=== PATIENT | female | born 1955 | race African-American/Black ===

== ENCOUNTER 2022-04-04 10:42 | Emergency (ER) | payer OTHER ==
[~2022-04-04] VITALS: Ht 165.1 cm; Wt 66.0 kg
[2022-04-04] MEDS ORDERED: HYDROCODONE/ACETAMINOPHEN 5/325MG TABLET PO STA (12:09)
[2022-04-04] MEDS ORDERED: CYCLOBENZAPRINE 10MG TABLET PO SCH (12:15)
[2022-04-04 12:26] VITALS: BP 135/75
[2022-04-04 12:43] LABS: BASOPHILS % 0.5 % (0.0-2.0); EOSINOPHILS % 2.2 % (0.0-5.0); HEMATOCRIT. 41.9 % (36.0-48.0); HEMOGLOBIN. 13.4 g/dL (12.0-16.0); LYMPHOCYTES % 31.1 % (20.0-50.0); MEAN CORPUSCULAR HEMOGLOBIN 27.3 pg (28.0-32.0); MEAN CORPUSCULAR VOLUME 85.4 fL (81.0-99.0); MONOCYTES % 11.5 % (2.0-8.0); NEUTROPHILS % 54.7 % (40.0-76.0); PLATELET 318 x1000/uL (130-400); RED CELL DISTRIBUTION WIDTH 14.4 % (11.6-14.6)
[2022-04-04 12:50] LABS: CHLORIDE 108 mEq/L (98-107)
[2022-04-04 12:57] LABS: CREATINE KINASE 249 IU/L (26-192)
[2022-04-04] MEDS ORDERED: HYDR-4001 MT (15:08)
== END 2022-04-04 15:24 | disposition home or self-care (01) ==
LOC: ER 10:56
DX: M79.605 Pain in left leg (principal)
CPT/HCPCS: 36415; 73502; 80053; 82550; 83605; 85025; 85379; 93971; 99285

== ENCOUNTER 2022-04-04 16:29 | Emergency (ER) | payer OTHER ==
[~2022-04-04 16:29] MED LIST: HYDR-4001 MT
== END 2022-04-04 17:38 | disposition left against medical advice (07) ==
LOC: ER 16:57
DX: Z53.21 Procedure and treatment not carried out due to patient leaving prior to being seen by health care provider (principal)

== ENCOUNTER 2022-04-07 11:32 | Emergency (ER) | payer OTHER ==
[~2022-04-07] VITALS: Ht 162.6 cm; Wt 75.0 kg
[2022-04-07] MEDS ORDERED: HYDROCODONE/ACETAMINOPHEN 5/325MG TABLET PO ONE (12:30)
[2022-04-07] MEDS ORDERED: KETOROLAC 60MG/2ML VIAL IM ONE (12:30)
[2022-04-07 13:05] VITALS: BP 163/77
[2022-04-07] MEDS ORDERED: CYCL5TAB MT (15:26)
[2022-04-07] MEDS ORDERED: IBUP-2028 MT (15:26)
[2022-04-07] MEDS ORDERED: MELO-104 MT (16:13)
== END 2022-04-07 16:23 | disposition home or self-care (01) ==
LOC: ER 11:47
DX: M54.32 Sciatica, left side (principal); I10 Essential (primary) hypertension
CPT/HCPCS: 72148; 73552; 96372; 99284; J1885

== ENCOUNTER 2022-12-07 08:26 | Emergency (ER) | payer OTHER ==
[~2022-12-07] VITALS: Ht 167.6 cm; Wt 72.0 kg
[~2022-12-07 08:26] MED LIST changes: +CYCL5TAB MT; +IBUP-2028 MT; +MELO-104 MT
[2022-12-07 08:31] VITALS: O2SAT 100
[2022-12-07] MEDS ORDERED: PANTOPRAZOLE SODIUM 40 MG/VIAL IV STA (08:54)
[2022-12-07] MEDS ORDERED: ONDANSETRON HCL 4MG/2ML INJ IV STA ×2 (08:54→17:29)
[2022-12-07] MEDS ORDERED: MORPHINE SULFATE 4 MG/ML CPJ (NOT FOR IM USE) IV STA (08:54)
[2022-12-07] MEDS ORDERED: SODIUM CHLORIDE 0.9% 1,000 ML IV ONE ×2 (09:00→12:30)
[2022-12-07 09:15] LABS: BASOPHILS % 0.4 % (0.0-2.0); EOSINOPHILS % 0.3 % (0.0-5.0); HEMATOCRIT. 40.1 % (36.0-48.0); HEMOGLOBIN. 13.7 g/dL (12.0-16.0); LYMPHOCYTES % 15.7 % (20.0-50.0); MEAN CORPUSCULAR HEMOGLOBIN 29.6 pg (28.0-32.0); MEAN CORPUSCULAR HGB CONC 34.1 g/dL (31.0-37.0); MEAN CORPUSCULAR VOLUME 86.6 fL (81.0-99.0); MEAN PLATELET VOLUME 8.1 fl (7.4-10.4); MONOCYTES % 9.9 % (2.0-8.0); NEUTROPHILS % 73.7 % (40.0-76.0); PLATELET 246 x1000/uL (130-400); RED BLOOD CELL COUNT 4.63 mill/uL (4.2-5.4); RED CELL DISTRIBUTION WIDTH 15.6 % (11.6-14.6); WHITE BLOOD COUNT 7.6 x1000/uL (4.5-11.0)
[2022-12-07 09:23] LABS: CHLORIDE 96 mEq/L (98-107); INDEX HEMOLYSI 2 (1-3); INDEX ICTERIC 1 (1-4); INDEX LIPEMIC 1 (1-3); POTASSIUM 3.1 mEq/L (3.5-5.1); SODIUM 132 mEq/L (136-145)
[2022-12-07 09:33] LABS: ALANINE AMINOTRANSFERASE 84 IU/L (13-61); ALBUMIN 3.7 g/dL (3.4-5.0); ASPARTATE AMINOTRANSFERASE 72 IU/L (15-37); BILIRUBIN TOTAL 0.4 mg/dL (0.1-1.0); CALCIUM 10.5 mg/dL (8.5-10.1); CARBON DIOXIDE 24 mEq/L (21-32); CREATININE 1.3 mg/dL (0.6-1.3); GLUCOSE 179 mg/dL (70-105); NT PRO B-TYPE NATRIURETIC PEP 1346 pg/mL (5-125); PROTEIN TOTAL 7.8 g/dL (6.0-8.3); TROPONIN I HIGH SENSITIVITY 17 ng/L (<54); UREA NITROGEN BLOOD 20 mg/dL (7-21)
[2022-12-07 11:47] LABS: CLARITY URINE CLOUDY (CLEAR); COLOR URINE YELLOW (YELLOW); GLUCOSE URINE NEGATIVE (NEGATIVE); KETONES URINE 1+ (NEGATIVE); LEUKOCYTE ESTERASE URINE NEGATIVE (NEGATIVE); NITRITE URINE NEGATIVE (NEGATIVE); OCCULT BLOOD URINE NEGATIVE (NEGATIVE); PH URINE 5.5 (4.5-8.0); PROTEIN URINE 2+ (NEGATIVE); SPECIFIC GRAVITY URINE 1.033 (1.005-1.030)
[2022-12-07 12:03] LABS: MUCUS URINE 1+ /lpf (< = 2+); SQUAMOUS EPITHELIAL CELL URINE 2+ /lpf (RARE/1+)
[2022-12-07 12:04] LABS: RBC URINE 0-2 /hpf (0-2); WBC URINE 0-2 /hpf (0-2)
[2022-12-07 12:05] LABS: BACTERIA URINE 2+
[2022-12-07] MEDS ORDERED: MORPHINE SULFATE 4 MG/ML CPJ (NOT FOR IM USE) IV ONE (13:00)
[2022-12-07] MEDS ORDERED: IOHEXOL-300 100 ML BOTTLE ONE (15:20)
[2022-12-07] MEDS ORDERED: KETOROLAC 30MG/ML VIAL IV STA (17:29)
[2022-12-07 19:00] VITALS: BP 179/97; PULSE 107; RESP 16; TEMP 98.2
== END 2022-12-07 19:28 | disposition short-term general hospital (02) ==
LOC: ER 08:26 → CANBEDREQ 18:24 → ER 19:28
DX: K85.90 Acute pancreatitis without necrosis or infection, unspecified (principal); I10 Essential (primary) hypertension
CPT/HCPCS: 80053; 81003; 83880; 83690; 85025; 84484; 36415; 71045; 74177; 76705; 93005; 96361; 96374; 96375; 96376; 99285; Q9967; J1885; J2405; C9113; J2270; J7030; Z7610 ×6

== ENCOUNTER 2023-10-27 00:25 | Emergency (ER) | payer OTHER ==
[~2023-10-27] VITALS: Ht 167.6 cm; Wt 73.0 kg
[2023-10-27 00:37] VITALS: O2SAT 98
[2023-10-27 02:00] VITALS: BP 144/65; PULSE 96; RESP 16; TEMP 98.2
[2023-10-27] MEDS ORDERED: HYDR-4001 MT (02:00)
[2023-10-27] MEDS: HYDROCODONE/ACETAMINOPHEN 5/325MG TABLET PO ONE (02:29)
== END 2023-10-27 02:35 | disposition home or self-care (01) ==
LOC: ER 00:25
DX: S92.901A Unspecified fracture of right foot, initial encounter for closed fracture (principal); I10 Essential (primary) hypertension; Z79.899 Other long term (current) drug therapy; X58.XXXA Exposure to other specified factors, initial encounter; Y93.89 Activity, other specified; Y92.89 Other specified places as the place of occurrence of the external cause; Y99.8 Other external cause status
CPT/HCPCS: 73630; 99283; Z7610

== ENCOUNTER 2024-03-23 12:11 | Emergency (ER) | payer OTHER ==
[~2024-03-23] VITALS: Ht 167.6 cm; Wt 73.0 kg
[2024-03-23 12:13] VITALS: TEMP 98.2; O2SAT 100
[2024-03-23 15:30] VITALS: O2SAT 99
[2024-03-23] MEDS ORDERED: HYDR-4001 MT (15:39)
[2024-03-23 15:54] VITALS: BP 170/100; PULSE 104; RESP 18
[2024-03-23] MEDS: HYDROCODONE/ACETAMINOPHEN 5/325MG TABLET PO STA (15:54)
== END 2024-03-23 16:54 | disposition home or self-care (01) ==
LOC: ER 12:11
DX: S92.514A Nondisplaced fracture of proximal phalanx of right lesser toe(s), initial encounter for closed fracture (principal); S90.121A Contusion of right lesser toe(s) without damage to nail, initial encounter; I10 Essential (primary) hypertension; Z87.891 Personal history of nicotine dependence; W22.8XXA Striking against or struck by other objects, initial encounter; Y93.89 Activity, other specified; Y92.89 Other specified places as the place of occurrence of the external cause; Y99.8 Other external cause status
CPT/HCPCS: 73630; 99283

== ENCOUNTER 2024-05-13 07:22 | Emergency (ER) | payer OTHER ==
[~2024-05-13] VITALS: Ht 167.6 cm; Wt 73.0 kg
[~2024-05-13 07:22] MED LIST changes: -CYCL5TAB MT; +CYCL5TAB3 MT
[2024-05-13 07:36] VITALS: O2SAT 100
[2024-05-13 07:55] VITALS: TEMP 37.00296; O2SAT 100
[2024-05-13 08:13] VITALS: BP 177/145; PULSE 107; RESP 22
[2024-05-13] MEDS: MORPHINE SULFATE 4 MG/ML INJ (FOR IV/IM USE) IV STA (08:13)
[2024-05-13] MEDS: SODIUM CHLORIDE 0.9% 1,000 ML IV ONE ×2 (08:14→11:13)
[2024-05-13] MEDS: ONDANSETRON HCL 4MG/2ML INJ IV STA (08:14)
[2024-05-13] MEDS: FAMOTIDINE 20MG/2ML VIAL IV STA (08:14)
[2024-05-13 09:07] LABS: HEMATOCRIT. 39.9 % (36.0-48.0); HEMOGLOBIN. 12.4 g/dL (12.0-16.0); MEAN CORPUSCULAR HEMOGLOBIN 27.6 pg (28.0-32.0); MEAN CORPUSCULAR HGB CONC 31.1 g/dL (31.0-37.0); MEAN CORPUSCULAR VOLUME 88.5 fL (81.0-99.0); MEAN PLATELET VOLUME 7.5 fl (7.4-10.4); PLATELET 362 x1000/uL (130-400); RED BLOOD CELL COUNT 4.51 mill/uL (4.2-5.4); RED CELL DISTRIBUTION WIDTH 16.4 % (11.6-14.6); WHITE BLOOD COUNT 13.8 x1000/uL (4.5-11.0)
[2024-05-13 09:10] LABS: DIFFERENTIAL COMMENT 1
[2024-05-13 09:17] LABS: PROTHROMBIN TIME 11.4 sec (9.6-11.0)
[2024-05-13 09:26] LABS: CHLORIDE 104 mEq/L (98-107); SODIUM 141 mEq/L (136-145)
[2024-05-13 09:27] LABS: CARBON DIOXIDE 22 mEq/L (21-32)
[2024-05-13 09:28] LABS: CALCIUM 9.1 mg/dL (8.7-10.4)
[2024-05-13 09:32] LABS: CREATININE 1.6 mg/dL (0.6-1.0)
[2024-05-13 09:33] LABS: GLUCOSE 215 mg/dL (70-105); TROPONIN I HIGH SENSITIVITY 12 ng/L (3.0-34)
[2024-05-13 09:34] LABS: ALANINE AMINOTRANSFERASE 18 IU/L (10-49); ASPARTATE AMINOTRANSFERASE 18 IU/L (<34); UREA NITROGEN BLOOD 22 mg/dL (9-23)
[2024-05-13 09:35] LABS: BILIRUBIN TOTAL < 0.2 mg/dL (0.1-1.0); PROTEIN TOTAL 6.7 g/dL (6.0-8.3)
[2024-05-13 10:02] LABS: BILIRUBIN DIRECT < 0.1 mg/dL (<=3.0)
[2024-05-13] MEDS: ONDANSETRON HCL 4MG/2ML INJ IV ONE (11:13)
[2024-05-13] MEDS ORDERED: KCL 20MEQ/100ML PREMIX 100 ML IV SCH (13:15)
[2024-05-13] MEDS ORDERED: ONDA4TAB50 PO (13:33)
[2024-05-13] MEDS ORDERED: POTASSIUM CHLORIDE 20MEQ/PACKET PO ONE (13:45)
[2024-05-13 17:42] LABS: PLATELET ESTIMATE NORMAL
== END 2024-05-13 13:54 | disposition home or self-care (01) ==
LOC: ER 07:22 → CANBEDREQ 13:03 → ER 13:54
DX: R11.2 Nausea with vomiting, unspecified (principal); I10 Essential (primary) hypertension; Z98.890 Other specified postprocedural states
CPT/HCPCS: 80076; 80048; 83690; 85025; 85610; 84484; 36415; 74176; 93005; 96361; 96374; 96375; 96376; 99285; J3490; J2405; J2270; J7030

== ENCOUNTER 2024-05-29 07:14 | Emergency (ER) | payer OTHER ==
[~2024-05-29] VITALS: Ht 167.6 cm; Wt 69.0 kg
[~2024-05-29 07:14] MED LIST changes: +ONDA4TAB50 PO
[2024-05-29 07:18] VITALS: O2SAT 100
[2024-05-29] MEDS: ONDANSETRON 4MG ODT PO STA (07:28)
[2024-05-29] MEDS: ACETAMINOPHEN 325MG TABLET PO STA (07:28)
[2024-05-29] MEDS: MAGNESIUM/ALUMINUM HYDROXIDE/SIMETHICONE 30ML UDC PO STA (07:28)
[2024-05-29] MEDS: SODIUM CHLORIDE 0.9% 1,000 ML IV ONE (08:37)
[2024-05-29] MEDS: MORPHINE SULFATE 4 MG/ML INJ (FOR IV/IM USE) IV ONE ×2 (08:45→12:24)
[2024-05-29 11:26] LABS: CHLORIDE 112 mEq/L (98-107); POTASSIUM 4.7 mEq/L (3.5-5.1); SODIUM 144 mEq/L (136-145)
[2024-05-29 11:27] LABS: HEMATOCRIT. 36.4 % (36.0-48.0); HEMOGLOBIN. 11.3 g/dL (12.0-16.0); MEAN CORPUSCULAR HEMOGLOBIN 28.3 pg (28.0-32.0); MEAN CORPUSCULAR HGB CONC 31.1 g/dL (31.0-37.0); MEAN PLATELET VOLUME 6.5 fl (7.4-10.4); PLATELET 460 x1000/uL (130-400); RED CELL DISTRIBUTION WIDTH 17.8 % (11.6-14.6); WHITE BLOOD COUNT 12.6 x1000/uL (4.5-11.0)
[2024-05-29 11:30] LABS: CALCIUM 9.1 mg/dL (8.7-10.4); CARBON DIOXIDE 21 mEq/L (21-32)
[2024-05-29 11:31] LABS: DIFFERENTIAL COMMENT 1
[2024-05-29 11:34] LABS: TROPONIN I HIGH SENSITIVITY 4 ng/L (3.0-34)
[2024-05-29 11:35] LABS: CREATININE 1.2 mg/dL (0.6-1.0); GLUCOSE 127 mg/dL (70-105); UREA NITROGEN BLOOD 14 mg/dL (9-23)
[2024-05-29 11:37] LABS: ALANINE AMINOTRANSFERASE 12 IU/L (10-49); ALBUMIN 4.2 g/dL (3.2-4.8); ASPARTATE AMINOTRANSFERASE 18 IU/L (<34)
[2024-05-29 11:38] LABS: BILIRUBIN TOTAL 0.2 mg/dL (0.1-1.0); PROTEIN TOTAL 7.1 g/dL (6.0-8.3)
[2024-05-29 11:43] LABS: BILIRUBIN DIRECT < 0.1 mg/dL (<=3.0)
[2024-05-29 11:44] LABS: ETHANOL BLOOD < 10 mg/dL (<10)
[2024-05-29] MEDS: ONDANSETRON HCL 4MG/2ML INJ IV ONE (12:23)
[2024-05-29 14:28] VITALS: BP 159/64; PULSE 90; RESP 17; TEMP 37.00296; O2SAT 98
[2024-05-29 17:16] LABS: ANISOCYTOSIS 1+; PLATELET ESTIMATE SLIGHTLY INCREASED
== END 2024-05-29 14:55 | disposition short-term general hospital (02) ==
LOC: ER 07:28 → EDBEDREQ 07:51 → CANBEDREQ 12:17 → ER 14:55
DX: K85.90 Acute pancreatitis without necrosis or infection, unspecified (principal); I10 Essential (primary) hypertension; Z87.19 Personal history of other diseases of the digestive system
CPT/HCPCS: 80076; 80048; 80320; 83690; 85025; 84484; 36415; 74176; 93005; 96361; 96374; 96375; 96376; 99285; Q0162; J2405; J2270; J7030; Z7610; G0480

== ENCOUNTER 2024-06-10 07:38 | Inpatient (IN) | payer OTHER ==
[~2024-06-10] VITALS: Ht 157.5 cm; Wt 73.0 kg
[2024-06-10 07:43] VITALS: O2SAT 99
[2024-06-10] MEDS ORDERED: SODIUM CHLORIDE 0.9% 1,000 ML IV ONE (08:00)
[2024-06-10 08:42] LABS: HEMATOCRIT. 39.5 % (36.0-48.0); HEMOGLOBIN. 12.5 g/dL (12.0-16.0); MEAN CORPUSCULAR HEMOGLOBIN 28.5 pg (28.0-32.0); MEAN CORPUSCULAR HGB CONC 31.8 g/dL (31.0-37.0); MEAN CORPUSCULAR VOLUME 89.6 fL (81.0-99.0); MEAN PLATELET VOLUME 6.6 fl (7.4-10.4); PLATELET 639 x1000/uL (130-400); RED BLOOD CELL COUNT 4.41 mill/uL (4.2-5.4); RED CELL DISTRIBUTION WIDTH 17.6 % (11.6-14.6); WHITE BLOOD COUNT 13.8 x1000/uL (4.5-11.0)
[2024-06-10 08:50] LABS: DIFFERENTIAL COMMENT 1
[2024-06-10 08:58] LABS: CHLORIDE 102 mEq/L (98-107); POTASSIUM 3.8 mEq/L (3.5-5.1); SODIUM 136 mEq/L (136-145)
[2024-06-10 08:59] LABS: CALCIUM 9.6 mg/dL (8.7-10.4); CARBON DIOXIDE 17 mEq/L (21-32)
[2024-06-10 09:03] LABS: PROTHROMBIN TIME 11.4 sec (9.6-11.0)
[2024-06-10 09:04] LABS: GLUCOSE 255 mg/dL (70-105); UREA NITROGEN BLOOD 19 mg/dL (9-23)
[2024-06-10 09:05] LABS: AMYLASE 95 IU/L (30-118); TROPONIN I HIGH SENSITIVITY 5 ng/L (3.0-34)
[2024-06-10 09:06] LABS: ALANINE AMINOTRANSFERASE 11 IU/L (10-49); ALBUMIN 4.3 g/dL (3.2-4.8); ASPARTATE AMINOTRANSFERASE 15 IU/L (<34); BILIRUBIN TOTAL 0.2 mg/dL (0.1-1.0); PROTEIN TOTAL 7.2 g/dL (6.0-8.3)
[2024-06-10 09:15] LABS: BILIRUBIN DIRECT < 0.1 mg/dL (<=3.0); CREATININE 1.9 mg/dL (0.6-1.0)
[2024-06-10] MEDS: MORPHINE SULFATE 4 MG/ML INJ (FOR IV/IM USE) IV STA (09:16)
[2024-06-10] MEDS: ONDANSETRON HCL 4MG/2ML INJ IV STA (09:17)
[2024-06-10] MEDS: FAMOTIDINE 20MG/2ML VIAL IV STA (09:17)
[2024-06-10 09:39] LABS: ANISOCYTOSIS 1+; PLATELET ESTIMATE INCREASED
[2024-06-10] MEDS: SODIUM CHLORIDE 0.9% (SEPSIS BOLUS) IV ONE (10:07)
[2024-06-10] MEDS: PIPERACILLIN/TAZO 3.375G/50ML 50 ML IV ONE (10:08)
[2024-06-10] MEDS ORDERED: LORAZEPAM 1MG TABLET PO ONE (12:30)
[2024-06-10 13:06] LABS: CLARITY URINE CLOUDY (CLEAR); COLOR URINE YELLOW (YELLOW); GLUCOSE URINE NEGATIVE (NEGATIVE); KETONES URINE TRACE (NEGATIVE); LEUKOCYTE ESTERASE URINE NEGATIVE (NEGATIVE); NITRITE URINE NEGATIVE (NEGATIVE); OCCULT BLOOD URINE NEGATIVE (NEGATIVE); PH URINE 5.5 (4.5-8.0); PROTEIN URINE 1+ (NEGATIVE); SPECIFIC GRAVITY URINE 1.026 (1.005-1.030); UROBILINOGEN URINE 0.2 E.U./dL (0.2-1.0)
[2024-06-10 13:14] LABS: *AMPHETAMINES SCREEN URINE NEGATIVE (NEGATIVE); *BARBITURATES SCREEN URINE NEGATIVE (NEGATIVE); *BENZODIAZEPINES SCREEN URINE NEGATIVE (NEGATIVE); *COCAINE SCREEN URINE NEGATIVE (NEGATIVE)
[2024-06-10 13:15] LABS: CANNABINOID URINE SCREEN PRESUMPTIVE POSITIVE (NEGATIVE); ECSTASY MDMA SCREEN URINE NEGATIVE (NEGATIVE); METHADONE URINE SCREEN NEGATIVE (NEGATIVE); OPIATES URINE SCREEN PRESUMPTIVE POSITIVE (NEGATIVE); PHENCYCLIDINE URINE SCREEN NEGATIVE (NEGATIVE)
[2024-06-10 13:21] LABS: BACTERIA URINE 2+; RBC URINE 0-2 /hpf (0-2); SQUAMOUS EPITHELIAL CELL URINE 3+ /lpf (RARE/1+); YEAST URINE NONE SEEN
[2024-06-10] MEDS ORDERED: DOCUSATE SODIUM 100MG CAPSULE PO PRN (14:15)
[2024-06-10] MEDS ORDERED: GUAIFENESIN 200MG/10ML SUGAR FREE UDC PO PRN (14:15)
[2024-06-10] MEDS ORDERED: IPRATROPIUM/ALBUTEROL 0.5-3(2.5)MG/3ML NEB HHN PRN (14:15)
[2024-06-10] MEDS ORDERED: CLONIDINE 0.1MG TABLET PO PRN (14:15)
[2024-06-10] MEDS ORDERED: ACETAMINOPHEN 325MG TABLET PO PRN ×2 (14:15)
[2024-06-10 15:53] LABS: TROPONIN I HIGH SENSITIVITY 7 ng/L (3.0-34)
[2024-06-10] MEDS: PIPERACILLIN/TAZO 3.375G/50ML 50 ML IV SCH (16:00)
[2024-06-10] MEDS: AMLODIPINE 5MG TABLET PO SCH (16:30)
[2024-06-10] MEDS: VANCOMYCIN 1.5GM/250ML 250 ML IV NR (19:48)
[2024-06-10] MEDS: SODIUM CHLORIDE 0.9% 1,000 ML IV SCH (19:51)
[2024-06-10 20:00] VITALS: BP 100/45; PULSE 82; RESP 16; TEMP 36.44736; O2SAT 99
[2024-06-10] MEDS: METOPROLOL TARTRATE 25MG TABLET PO SCH (20:15)
[2024-06-10] MEDS: TRAZODONE HCL 50MG TABLET PO SCH (20:15)
[2024-06-10] MEDS: GABAPENTIN 300MG CAPSULE PO SCH (20:16)
[2024-06-10 21:00] VITALS: BP 127/77; PULSE 95; RESP 22; TEMP 36.9474; O2SAT 92
[2024-06-10] MEDS: HYDROCODONE/ACETAMINOPHEN 5/325MG TABLET PO PRN (23:13)
[2024-06-11] VITALS: BP_SYST 122; BP_SYST 144; BP_DIAS 64; BP_DIAS 84; PULSE 84; PULSE 92; RESP 18; TEMP 36.28068; TEMP 36.3918; O2SAT 96; O2SAT 98
[2024-06-11 04:00] VITALS: BP_SYST 123; BP_SYST 139; BP_DIAS 60; BP_DIAS 89; PULSE 80; PULSE 91; RESP 18; TEMP 36.16956; TEMP 36.44736; O2SAT 100; O2SAT 97
[2024-06-11 06:01] LABS: HEMATOCRIT 32.6 % (36.0-48.0); HEMOGLOBIN 10.3 g/dL (12.0-16.0); MEAN CORPUSCULAR HEMOGLOBIN 28.6 pg (28.0-32.0); MEAN CORPUSCULAR HGB CONC 31.6 g/dL (31.0-37.0); MEAN CORPUSCULAR VOLUME 90.5 fL (81.0-99.0); PLATELET 487 x1000/uL (130-400); RED BLOOD CELL COUNT 3.61 mill/uL (4.2-5.4); RED CELL DISTRIBUTION WIDTH 17.5 % (11.6-14.6); WHITE BLOOD COUNT 8.6 x1000/uL (4.5-11.0)
[2024-06-11 06:11] LABS: CHLORIDE 107 mEq/L (98-107); POTASSIUM 3.4 mEq/L (3.5-5.1); SODIUM 141 mEq/L (136-145)
[2024-06-11 06:12] LABS: CALCIUM 9.3 mg/dL (8.7-10.4); CARBON DIOXIDE 22 mEq/L (21-32)
[2024-06-11] MEDS: ONDANSETRON HCL 4MG/2ML INJ IV PRN (06:13)
[2024-06-11 06:17] LABS: CREATININE 1.4 mg/dL (0.6-1.0); GLUCOSE 93 mg/dL (70-105); UREA NITROGEN BLOOD 13 mg/dL (9-23)
[2024-06-11 06:19] LABS: PHOSPHORUS 2.6 mg/dL (2.5-4.9)
[2024-06-11 08:00] VITALS: BP 178/73; PULSE 77; RESP 18; TEMP 36.22512; O2SAT 96
[2024-06-11] MEDS ORDERED: PANTOPRAZOLE SODIUM 40 MG/VIAL IV SCH (09:00)
[2024-06-11] MEDS ORDERED: MAGNESIUM 2 G PREMIX 50 ML IV NR (09:30)
[2024-06-11] MEDS ORDERED: ENOXAPARIN 80MG/0.8ML SYR SUBCUT SCH (10:00)
[2024-06-11] MEDS: POTASSIUM CHLORIDE 20MEQ TABLET SR PO NR (10:33)
[2024-06-11] MEDS: ASPIRIN 81MG TABLET PO ONE (11:00)
[2024-06-11 12:17] VITALS: BP 60/112; PULSE 82
[2024-06-11] MEDS ORDERED: VANCOMYCIN 500MG PREMIX 100 ML IV SCH (18:00)
== END 2024-06-11 16:06 | disposition short-term general hospital (02) | DRG 871 ==
LOC: ER 07:38 → EDBEDREQSVC 09:29 → EDBEDREQTM 09:29 → EDBEDREQ 09:29 → 5WST 09:57
PROVIDERS: ADMIT Internal Medicine; ATTEND Internal Medicine
DX: A41.9 Sepsis, unspecified organism (principal); K85.90 Acute pancreatitis without necrosis or infection, unspecified; E87.20 Acidosis, unspecified; N17.9 Acute kidney failure, unspecified; K86.1 Other chronic pancreatitis; I82.412 Acute embolism and thrombosis of left femoral vein; D75.839 Thrombocytosis, unspecified; I10 Essential (primary) hypertension; I25.10 Atherosclerotic heart disease of native coronary artery without angina pectoris; K29.70 Gastritis, unspecified, without bleeding; K44.9 Diaphragmatic hernia without obstruction or gangrene; N20.0 Calculus of kidney; Z96.652 Presence of left artificial knee joint; F41.9 Anxiety disorder, unspecified; R73.9 Hyperglycemia, unspecified; F19.10 Other psychoactive substance abuse, uncomplicated; Z79.899 Other long term (current) drug therapy; Z95.5 Presence of coronary angioplasty implant and graft
CPT/HCPCS: 36415; 71045; 74176; 80048; 80061; 80076; 80305; 80320; 81003; 82150; 82550; 82553; 83036; 83605; 83735; 83880; 84100; 84484; 85025; 85027; 93005; 93970; 99291; C1893; J1650; J2270; J2405; J2470; J2543; J3370; J3475; J3490; J7030; G0480

== ENCOUNTER 2024-06-11 16:42 | Emergency (ER) | payer OTHER | END 2024-06-11 17:04 | disposition left against medical advice (07) | LOC: ER 16:42 | DX: R07.9 Chest pain, unspecified (principal); Z53.21 Procedure and treatment not carried out due to patient leaving prior to being seen by health care provider ==

== ENCOUNTER 2024-06-13 17:34 | Inpatient (IN) | payer OTHER ==
[~2024-06-13] VITALS: Ht 167.6 cm; Wt 68.1 kg
[2024-06-13 17:40] VITALS: O2SAT 100
[2024-06-13 18:30] LABS: BASOPHILS % 0.5 % (0.0-2.0); DIFFERENTIAL COMMENT 0; EOSINOPHILS % 0.8 % (0.0-5.0); HEMATOCRIT. 36.7 % (36.0-48.0); HEMOGLOBIN. 10.7 g/dL (12.0-16.0); LYMPHOCYTES % 24.1 % (20.0-50.0); MEAN CORPUSCULAR HEMOGLOBIN 27.3 pg (28.0-32.0); MEAN CORPUSCULAR HGB CONC 29.1 g/dL (31.0-37.0); MEAN PLATELET VOLUME 6.6 fl (7.4-10.4); MONOCYTES % 8.7 % (2.0-8.0); NEUTROPHILS % 65.9 % (40.0-76.0); PLATELET 474 x1000/uL (130-400); RED CELL DISTRIBUTION WIDTH 18.4 % (11.6-14.6); WHITE BLOOD COUNT 9.3 x1000/uL (4.5-11.0)
[2024-06-13 18:40] LABS: CHLORIDE 105 mEq/L (98-107); SODIUM 137 mEq/L (136-145)
[2024-06-13 18:41] LABS: CARBON DIOXIDE 18 mEq/L (21-32)
[2024-06-13 18:46] LABS: CREATININE 1.3 mg/dL (0.6-1.0); GLUCOSE 110 mg/dL (70-105); UREA NITROGEN BLOOD 11 mg/dL (9-23)
[2024-06-13 19:03] LABS: TROPONIN I HIGH SENSITIVITY < 4 ng/L (3.0-34)
[2024-06-13 19:19] LABS: ALANINE AMINOTRANSFERASE 9 IU/L (10-49); ALBUMIN 4.1 g/dL (3.2-4.8); ASPARTATE AMINOTRANSFERASE 17 IU/L (<34); BILIRUBIN TOTAL 0.2 mg/dL (0.1-1.0)
[2024-06-13 19:23] LABS: CLARITY URINE CLEAR (CLEAR); COLOR URINE YELLOW (YELLOW); GLUCOSE URINE NEGATIVE (NEGATIVE); KETONES URINE NEGATIVE (NEGATIVE); LEUKOCYTE ESTERASE URINE NEGATIVE (NEGATIVE); NITRITE URINE NEGATIVE (NEGATIVE); OCCULT BLOOD URINE NEGATIVE (NEGATIVE); PH URINE 7.5 (4.5-8.0); PROTEIN URINE NEGATIVE (NEGATIVE); SPECIFIC GRAVITY URINE 1.015 (1.005-1.030); UROBILINOGEN URINE 0.2 E.U./dL (0.2-1.0)
[2024-06-13 19:23] LABS: BILIRUBIN DIRECT < 0.1 mg/dL (<=3.0)
[2024-06-13] MEDS: SODIUM CHLORIDE 0.9% 1,000 ML IV ONE (20:00)
[2024-06-13] MEDS: SODIUM CHLORIDE 0.9% (SEPSIS BOLUS) IV ONE (20:00)
[2024-06-13] MEDS: PIPERACILLIN/TAZO 3.375G/50ML 50 ML IV ONE (20:00)
[2024-06-13] MEDS: MORPHINE SULFATE 4 MG/ML INJ (FOR IV/IM USE) IV STA ×2 (20:03→21:52)
[2024-06-13] MEDS: ONDANSETRON HCL 4MG/2ML INJ IV STA ×2 (20:03→21:53)
[2024-06-13] MEDS: HYDRALAZINE 20MG/ML VIAL IV ONE (22:11)
[2024-06-13 22:21] LABS: LACTIC ACID 3.4 mmol/L (0.4-2.0)
[2024-06-13] MEDS ORDERED: ACETAMINOPHEN 325MG TABLET PO PRN (23:15)
[2024-06-13] MEDS ORDERED: CLONIDINE 0.1MG TABLET PO PRN (23:15)
[2024-06-13] MEDS ORDERED: MAGNESIUM/ALUMINUM HYDROXIDE/SIMETHICONE 30ML UDC PO PRN (23:15)
[2024-06-13] MEDS ORDERED: IPRATROPIUM/ALBUTEROL 0.5-3(2.5)MG/3ML NEB HHN PRN (23:15)
[2024-06-13] MEDS ORDERED: ATOR40TA70 (23:35)
[2024-06-13] MEDS ORDERED: ESCI-7 (23:35)
[2024-06-13] MEDS ORDERED: AMLO5TAB88 (23:35)
[2024-06-13] MEDS ORDERED: BUSP5TAB3 (23:35)
[2024-06-13] MEDS ORDERED: METO25TA6 (23:35)
[2024-06-13] MEDS: LABETALOL 5MG/ML 4ML INJ IV NR (23:54)
[2024-06-13] MEDS: DEXT 5%/0.45% NACL 1000ML 1,000 ML IV SCH (23:54)
[2024-06-14] VITALS (7 sets, daily range): BP systolic 108–143; BP diastolic 54–81; PULSE 82–97; RESP 16–24; TEMP 36.7–37.1; O2SAT 97–100
[2024-06-14] MEDS: MORPHINE SULFATE 2 MG/ML INJ (NOT FOR IM USE) IV PRN (00:35)
[2024-06-14] MEDS: PANTOPRAZOLE SODIUM 40 MG/VIAL IV SCH ×2 (00:35→21:52)
[2024-06-14] MEDS: HYDRALAZINE 20MG/ML VIAL IV SCH (00:59)
[2024-06-14 01:33] LABS: T4 FREE 1.43 ng/dL (0.89-1.76); THYROID STIMULATING HORMONE 6.52 uIU/mL (0.55-4.78)
[2024-06-14 01:59] LABS: TROPONIN I HIGH SENSITIVITY < 4 ng/L (3.0-34)
[2024-06-14] MEDS: VANCOMYCIN 1.25GM PMX (XELLIA) 250 ML IV NR (03:54)
[2024-06-14] MEDS: PIPERACILLIN/TAZO 3.375G/50ML 50 ML IV SCH (06:34)
[2024-06-14 12:53] LABS: BASOPHILS % 0.3 % (0.0-2.0); DIFFERENTIAL COMMENT 0; EOSINOPHILS % 1.1 % (0.0-5.0); HEMATOCRIT. 35.2 % (36.0-48.0); HEMOGLOBIN. 10.7 g/dL (12.0-16.0); LYMPHOCYTES % 15.7 % (20.0-50.0); MEAN CORPUSCULAR HEMOGLOBIN 28.3 pg (28.0-32.0); MEAN CORPUSCULAR HGB CONC 30.3 g/dL (31.0-37.0); MEAN CORPUSCULAR VOLUME 93.4 fL (81.0-99.0); MEAN PLATELET VOLUME 6.6 fl (7.4-10.4); NEUTROPHILS % 70.9 % (40.0-76.0); PLATELET 470 x1000/uL (130-400); RED BLOOD CELL COUNT 3.77 mill/uL (4.2-5.4); RED CELL DISTRIBUTION WIDTH 18.2 % (11.6-14.6)
[2024-06-14 13:08] LABS: CREATININE 1.1 mg/dL (0.6-1.0)
[2024-06-14 16:48] LABS: *AMPHETAMINES SCREEN URINE NEGATIVE (NEGATIVE)
[2024-06-14 16:49] LABS: *BARBITURATES SCREEN URINE NEGATIVE (NEGATIVE); *BENZODIAZEPINES SCREEN URINE NEGATIVE (NEGATIVE); *COCAINE SCREEN URINE NEGATIVE (NEGATIVE); CANNABINOID URINE SCREEN PRESUMPTIVE POSITIVE (NEGATIVE); ECSTASY MDMA SCREEN URINE NEGATIVE (NEGATIVE); METHADONE URINE SCREEN NEGATIVE (NEGATIVE); OPIATES URINE SCREEN PRESUMPTIVE POSITIVE (NEGATIVE); PHENCYCLIDINE URINE SCREEN NEGATIVE (NEGATIVE)
[2024-06-14] MEDS: ENOXAPARIN 80MG/0.8ML SYR SUBCUT SCH (21:53)
[2024-06-14 22:29] LABS: CREATINE KINASE 31 IU/L (34-145)
[2024-06-15] VITALS (7 sets, daily range): BP systolic 130–153; BP diastolic 48–73; PULSE 83–99; RESP 15–22; TEMP 36.7–37; O2SAT 97–100
[2024-06-15] MEDS ORDERED: IOHEXOL-350 100 ML BOTTLE ONE (01:21)
[2024-06-15 03:44] LABS: BASOPHILS % 0.4 % (0.0-2.0); EOSINOPHILS % 2.6 % (0.0-5.0); HEMATOCRIT. 33.2 % (36.0-48.0); HEMOGLOBIN. 10.6 g/dL (12.0-16.0); LYMPHOCYTES % 21.4 % (20.0-50.0); MEAN CORPUSCULAR HEMOGLOBIN 28.5 pg (28.0-32.0); MEAN CORPUSCULAR HGB CONC 31.8 g/dL (31.0-37.0); MEAN CORPUSCULAR VOLUME 89.9 fL (81.0-99.0); MEAN PLATELET VOLUME 6.5 fl (7.4-10.4); MONOCYTES % 10.1 % (2.0-8.0); NEUTROPHILS % 65.5 % (40.0-76.0); PLATELET 523 x1000/uL (130-400); WHITE BLOOD COUNT 7.4 x1000/uL (4.5-11.0)
[2024-06-15 03:51] LABS: CARBON DIOXIDE 20 mEq/L (21-32); CHLORIDE 108 mEq/L (98-107); POTASSIUM 3.7 mEq/L (3.5-5.1); SODIUM 141 mEq/L (136-145)
[2024-06-15 03:52] LABS: CALCIUM 9.2 mg/dL (8.7-10.4)
[2024-06-15 03:56] LABS: IRON 47 ug/dL (50-170)
[2024-06-15 03:57] LABS: CREATININE 1.1 mg/dL (0.6-1.0); GLUCOSE 127 mg/dL (70-105); UREA NITROGEN BLOOD 9 mg/dL (9-23)
[2024-06-15 03:58] LABS: ALANINE AMINOTRANSFERASE 11 IU/L (10-49); AMYLASE 74 IU/L (30-118)
[2024-06-15 03:59] LABS: ALBUMIN 3.8 g/dL (3.2-4.8); ASPARTATE AMINOTRANSFERASE 11 IU/L (<34); BILIRUBIN TOTAL 0.4 mg/dL (0.1-1.0); GAMMA GLUTAMYL TRANSPEPTIDASE 42 IU/L (<38); PHOSPHORUS 3.8 mg/dL (2.5-4.9); PROTEIN TOTAL 6.4 g/dL (6.0-8.3); TOTAL IRON BINDING CAPACITY 293 ug/dl (250-425)
[2024-06-15 04:02] LABS: PROTHROMBIN TIME 11.3 sec (9.6-11.0)
[2024-06-15 04:03] LABS: FERRITIN 69 ng/mL (10-291)
[2024-06-15 04:04] LABS: VITAMIN B12 SERUM 1675 pg/mL (211-911)
[2024-06-15 04:14] LABS: HEPATITIS B SURFACE ANTIGEN NEGATIVE (Negative)
[2024-06-15 04:29] LABS: BILIRUBIN DIRECT < 0.1 mg/dL (<=3.0)
[2024-06-15 04:35] LABS: HEPATITIS A AB IGM NEGATIVE (Negative)
[2024-06-15 04:36] LABS: HEPATITIS B CORE AB IGM NEGATIVE (Negative); HEPATITIS C AB NON REACTIVE (Neg) (Negative)
[2024-06-15] MEDS: VANCOMYCIN 1GM/200ML PMX (BAXTER) IV SCH (05:56)
[2024-06-15] MEDS ORDERED: PROPOFOL 200MG/20ML VIAL IV ONE (11:42)
[2024-06-15] MEDS ORDERED: HYDROMORPHONE HCL/PF 1MG/ML INJ IV PRN (11:45)
[2024-06-15] MEDS ORDERED: SIMETHICONE 40 MG/0.6 ML 15ML ONE (11:45)
[2024-06-15] MEDS ORDERED: ONDANSETRON HCL 4MG/2ML INJ IV PRN (11:45)
[2024-06-15] MEDS: ONDANSETRON HCL 4MG/2ML INJ IV PRN (20:12)
[2024-06-16 04:00] VITALS: BP 161/84; TEMP 36.8
[2024-06-16 08:00] VITALS: BP 138/62; PULSE 93; RESP 18; TEMP 36.7; O2SAT 98
[2024-06-16 10:25] LABS: POTASSIUM 3.5 mEq/L (3.5-5.1)
[2024-06-16 10:26] LABS: CALCIUM 9.3 mg/dL (8.7-10.4)
[2024-06-16 10:31] LABS: CREATININE 1.1 mg/dL (0.6-1.0)
[2024-06-16] MEDS ORDERED: SUCR1TAB MT (10:35)
[2024-06-16] MEDS ORDERED: PROT40 MT (10:35)
[2024-06-16 12:00] VITALS: BP 138/76; PULSE 88; RESP 18; TEMP 36.7; O2SAT 99
[2024-06-16 13:35] VITALS: BP 138/76; PULSE 98; RESP 18
[2024-06-18 13:06] LABS: ETHANOL URINE Negative % (Cutoff=0.020)
== END 2024-06-16 14:34 | disposition home or self-care (01) | DRG 384 ==
LOC: ER 17:34 → 3WST 22:32 → EDBEDREQTM 23:25 → EDBEDREQ 23:25
PROVIDERS: ADMIT Internal Medicine; ATTEND Internal Medicine
PROC: 0DB78ZX Excision of Stomach, Pylorus, Via Natural or Artificial Opening Endoscopic, Diagnostic (ICD-10-PCS; principal; 2024-06-15)
DX: K26.9 Duodenal ulcer, unspecified as acute or chronic, without hemorrhage or perforation (principal); N17.9 Acute kidney failure, unspecified; K86.1 Other chronic pancreatitis; K22.10 Ulcer of esophagus without bleeding; K29.80 Duodenitis without bleeding; D63.1 Anemia in chronic kidney disease; E27.9 Disorder of adrenal gland, unspecified; I13.10 Hypertensive heart and chronic kidney disease without heart failure, with stage 1 through stage 4 chronic kidney disease, or unspecified chronic kidney disease; I25.10 Atherosclerotic heart disease of native coronary artery without angina pectoris; I49.3 Ventricular premature depolarization; K57.30 Diverticulosis of large intestine without perforation or abscess without bleeding; N18.9 Chronic kidney disease, unspecified; N20.0 Calculus of kidney; F10.10 Alcohol abuse, uncomplicated; F32.A Depression, unspecified; F41.9 Anxiety disorder, unspecified; D75.839 Thrombocytosis, unspecified; Y90.9 Presence of alcohol in blood, level not specified; K25.9 Gastric ulcer, unspecified as acute or chronic, without hemorrhage or perforation; K29.70 Gastritis, unspecified, without bleeding; K44.9 Diaphragmatic hernia without obstruction or gangrene; Z79.02 Long term (current) use of antithrombotics/antiplatelets; Z79.899 Other long term (current) drug therapy; Z87.11 Personal history of peptic ulcer disease; Z91.148 Patient's other noncompliance with medication regimen for other reason; Z95.5 Presence of coronary angioplasty implant and graft
CPT/HCPCS: 36415; 71045; 74174; 74176; 80048; 80061; 80076; 80202; 80305; 80320; 81003; 82150; 82550; 82607; 82728; 82746; 82977; 83540; 83550; 83605; 83735; 84100; 84439; 84443; 84484; 85025; 86705; 86709; 87340; 88305; 93005; 93970; 99285; J0360; J1650; J2270; J2405; J2470; J2543; J2704; J3370; J3490; J7030; Q9967

== ENCOUNTER 2024-08-06 16:51 | Emergency (ER) | payer MEDICARE, OTHER ==
[~2024-08-06] VITALS: Ht 165.1 cm; Wt 63.0 kg
[~2024-08-06 16:51] MED LIST changes: +AMLO5TAB88; +ATOR40TA70; +BUSP5TAB3; -CYCL5TAB3 MT; +ESCI-7; -HYDR-4001 MT; -IBUP-2028 MT; +METO25TA6; -ONDA4TAB50 PO; +PROT40 MT; +SUCR1TAB MT
[2024-08-06 17:18] VITALS: TEMP 36.6; O2SAT 100
[2024-08-06] MEDS: HYDROCODONE/ACETAMINOPHEN 5/325MG TABLET PO ONE (23:18)
[2024-08-07 01:53] LABS: BASOPHILS % 0.2 % (0.0-2.0); EOSINOPHILS % 1.1 % (0.0-5.0); HEMATOCRIT. 31.5 % (36.0-48.0); HEMOGLOBIN. 9.7 g/dL (12.0-16.0); LYMPHOCYTES % 18.8 % (20.0-50.0); MEAN CORPUSCULAR HEMOGLOBIN 27.4 pg (28.0-32.0); MEAN CORPUSCULAR HGB CONC 30.9 g/dL (31.0-37.0); MEAN CORPUSCULAR VOLUME 88.9 fL (81.0-99.0); MEAN PLATELET VOLUME 7.5 fl (7.4-10.4); MONOCYTES % 9.3 % (2.0-8.0); NEUTROPHILS % 70.6 % (40.0-76.0); PLATELET 315 x1000/uL (130-400); RED BLOOD CELL COUNT 3.54 mill/uL (4.2-5.4); RED CELL DISTRIBUTION WIDTH 15.4 % (11.6-14.6)
[2024-08-07 02:05] LABS: POTASSIUM 4.2 mEq/L (3.5-5.1)
[2024-08-07 02:06] LABS: CALCIUM 9.3 mg/dL (8.7-10.4)
[2024-08-07 02:10] LABS: INR 0.9; PROTHROMBIN TIME 10.2 sec (9.6-11.0)
[2024-08-07 02:11] LABS: CREATININE 1.4 mg/dL (0.6-1.0)
[2024-08-07] MEDS: MORPHINE SULFATE 4 MG/ML INJ (FOR IV/IM USE) IV ONE (03:09)
[2024-08-07] MEDS: KETOROLAC 30MG/ML VIAL IV ONE (03:09)
[2024-08-07] MEDS: ONDANSETRON HCL 4MG/2ML INJ IV ONE (03:26)
[2024-08-07 05:15] VITALS: BP 138/65; PULSE 81; RESP 18; O2SAT 100
== END 2024-08-07 05:56 | disposition short-term general hospital (02) ==
LOC: ER 17:00 → EDBEDREQ 08-07 02:47 → ER 08-07 05:56
DX: S82.291A Other fracture of shaft of right tibia, initial encounter for closed fracture (principal); E11.9 Type 2 diabetes mellitus without complications; I10 Essential (primary) hypertension; M47.812 Spondylosis without myelopathy or radiculopathy, cervical region; I67.82 Cerebral ischemia; Z79.899 Other long term (current) drug therapy; W19.XXXA Unspecified fall, initial encounter; Y93.89 Activity, other specified; Y92.89 Other specified places as the place of occurrence of the external cause; Y99.8 Other external cause status
CPT/HCPCS: 73552; 71045; 73030; 73560; 73590; 70450; 70486; 72125; 99285; 80048; 85025; 85610; 86850; 86900; 86901; 36415; 93005; 96374; 96375; J1885; J2405; J2270; Z7610

== ENCOUNTER 2025-03-17 04:23 | Emergency (ER) | payer OTHER ==
[~2025-03-17] VITALS: Ht 167.6 cm; Wt 70.0 kg
[2025-03-17 04:31] VITALS: O2SAT 100
[2025-03-17] MEDS: IBUPROFEN 600MG TABLET PO ONE (04:45)
[2025-03-17] MEDS ORDERED: SULF1TAB48 MT (04:56)
[2025-03-17] MEDS ORDERED: IBUP-1455 MT (04:56)
[2025-03-17] MEDS ORDERED: BO1 TP (04:56)
[2025-03-17 05:50] VITALS: BP 113/57; PULSE 81; RESP 16; TEMP 36.8; O2SAT 98
[2025-03-17] MEDS: SULFAMETHOXAZOLE/TRIMETHOPRIM 800/160MG TABLET PO ONE (05:53)
[2025-03-17] MEDS: TETANUS, DIPHTHERIA, PERTUSSIS VAC/PF 0.5ML (>10YR OLD) IM ONE (05:54)
== END 2025-03-17 06:07 | disposition home or self-care (01) ==
LOC: ER 04:38
DX: S60.221A Contusion of right hand, initial encounter (principal); R51.9 Headache, unspecified; E11.9 Type 2 diabetes mellitus without complications; I10 Essential (primary) hypertension; W19.XXXA Unspecified fall, initial encounter; Y93.89 Activity, other specified; Y92.89 Other specified places as the place of occurrence of the external cause; Y99.8 Other external cause status
CPT/HCPCS: 70486; 73130; 90471; 90715; 99285